=== PATIENT | female | born 1990 | race Caucasian/White ===

== ENCOUNTER 2018-12-20 18:28 | Emergency (ER) | payer OTHER ==
[~2018-12-20] VITALS: Ht 170.2 cm; Wt 86.0 kg
--- NOTE | 2018-12-20 18:36 | NUR ---
PT TO RM AT THIS TIME, RALFD AT BEDSIDE. PT INMATE. PT CURRENLTY AOX2, SEIZURE PRECAUTIONS ARE IN PLACE. ERMD IN TO EVAL PT
--- NOTE | 2018-12-20 19:01 | NUR ---
PT RESTING ON GURNEY WITH EYES OPEN ANSWERING QUESTIONS APPROPRIATELY, MONITORS IN PLACE, OFFICER AT BEDSIDE FOR MONITORING, CALL LIGHT WITHIN REACH. AWAITING LAB RESULTS
[2018-12-20 19:09] LABS: BASOPHILS # (AUTO) 0.03 x10^3/uL (0-0.1); BASOPHILS % (AUTO) 0 % (0-1); EOSINOPHILS # (AUTO) 0.07 x10^3/uL (0-0.4); EOSINOPHILS % (AUTO) 1 % (1-7); LYMPHOCYTES % (AUTO) 30 % (22-44); MD NO; MEAN CORPUSCULAR HEMOGLOBIN 27.2 pg (27.0-34.8); MEAN CORPUSCULAR HGB CONC 32.9 g/dL (32.4-35.8); MEAN CORPUSCULAR VOLUME 82.8 fL (80-100); MEAN PLATELET VOLUME 8.6 fL (7.4-10.4); MONOCYTES # (AUTO) 0.35 x10^3/uL (0.2-0.8); MONOCYTES % (AUTO) 5 % (2-9); NEUTROPHILS # (AUTO) 4.53 x10^3/uL (1.8-6.8); NEUTROPHILS % (AUTO) 64 % (42-75); PLATELET COUNT 298 x10^3/uL (130-400); RED BLOOD COUNT 5.81 x10^6/uL (3.82-5.3); RED CELL DISTRIBUTION WIDTH 15.1 % (9.6-15.2)
[2018-12-20 19:19] LABS: ALANINE AMINOTRANSFERASE 16 U/L (12-78); ALBUMIN 4.3 g/dL (3.4-5.0); ANION GAP 7 mmol/L (5-15); CALCIUM 8.9 mg/dL (8.5-10.1); CHLORIDE 109 mmol/L (98-107)
[2018-12-20 19:23] LABS: ALKALINE PHOSPHATASE 65 U/L (45-117); BILIRUBIN,TOTAL 0.3 mg/dL (0.2-1.0); TOTAL PROTEIN 8.8 g/dL (6.4-8.2)
[2018-12-20] MEDS ORDERED: DIVA250T4 PO (19:28)
[2018-12-20] MEDS ORDERED: GABA-827 PO (19:28)
[2018-12-20] MEDS ORDERED: DIVALPROEX 250 MG TAB.ER.24H PO ONE (20:30)
[2018-12-20] MEDS ORDERED: LEVETIRACETAM 500 MG TABLET PO ONE (20:30)
[2018-12-20 20:31] VITALS: BP 100/67
[2018-12-20] MEDS ORDERED: LEVETIRACETAM 500 MG TABLET ONE (20:36)
--- NOTE | 2018-12-20 20:40 | NUR ---
yellow slip sent to pharmacy for medication
--- NOTE | 2018-12-20 20:44 | NUR ---
PT MEDICATED PER MAR
[2018-12-21] MEDS ORDERED: DIVA125T2 PO (19:14)
[2018-12-21] MEDS ORDERED: subutex (19:18)
== END 2018-12-20 21:06 | disposition home or self-care (01) ==
LOC: ED 20:17
DX: G40.319 Generalized idiopathic epilepsy and epileptic syndromes, intractable, without status epilepticus (principal)
CPT/HCPCS: 36415; 80053; 84703; 85025; 99283

== ENCOUNTER 2018-12-21 17:20 | Inpatient (IN) | payer OTHER ==
[~2018-12-21] VITALS: Ht 160 cm; Wt 72.3 kg
[~2018-12-21 17:20] MED LIST: DIVA250T4 PO; ETOMIDATE 20 MG/10 ML ONE; GABA-827 PO; MIDAZOLAM 1 MG/ML, 5ML ONE; PROPOFOL 100 ML IV ONE; SUCCINYLCHOLINE 20 MG/ML, 10ML ONE
[2018-12-21] MEDS ORDERED: SODIUM CHLORIDE FLUSH 10ML SYR IVF ONE (17:30)
[2018-12-21] MEDS ORDERED: LORazepam 2 MG/ML, 1ML IVPush ONE ×5 (17:30→20:00)
[2018-12-21] MEDS ORDERED: LORazepam 2 MG/ML, 1ML IM ONE (17:30)
[2018-12-21] MEDS ORDERED: LORazepam 2 MG/ML, 1ML ONE ×4 (17:38→20:41)
[2018-12-21] MEDS ORDERED: PLEASE ENTER HEIGHT AND WEIGHT MC SCH (18:00)
--- NOTE | 2018-12-21 18:55 | NUR ---
REPORT FROM JOSE RAMON ASSUMED CARE OF PT AT THIS TIME PT TALKATIVE IN NAD AT THIS TIME
[2018-12-21 18:57] LABS: BASOPHILS # (AUTO) 0.03 x10^3/uL (0-0.1); BASOPHILS % (AUTO) 0 % (0-1); EOSINOPHILS # (AUTO) 0.09 x10^3/uL (0-0.4); EOSINOPHILS % (AUTO) 1 % (1-7); LYMPHOCYTES % (AUTO) 28 % (22-44); MD NO; MEAN CORPUSCULAR HEMOGLOBIN 27.3 pg (27.0-34.8); MEAN CORPUSCULAR HGB CONC 32.9 g/dL (32.4-35.8); MEAN PLATELET VOLUME 8.5 fL (7.4-10.4); MONOCYTES # (AUTO) 0.51 x10^3/uL (0.2-0.8); MONOCYTES % (AUTO) 6 % (2-9); NEUTROPHILS # (AUTO) 5.06 x10^3/uL (1.8-6.8); NEUTROPHILS % (AUTO) 64 % (42-75); PLATELET COUNT 273 x10^3/uL (130-400); RED BLOOD COUNT 4.82 x10^6/uL (3.82-5.3); RED CELL DISTRIBUTION WIDTH 15.3 % (9.6-15.2)
--- NOTE | 2018-12-21 19:01 | NUR ---
PT HAD SEIZURE AT THIS TIME
[2018-12-21 19:08] LABS: ALBUMIN 3.5 g/dL (3.4-5.0); ANION GAP 11 mmol/L (5-15); CALCIUM 8.2 mg/dL (8.5-10.1); CHLORIDE 112 mmol/L (98-107)
--- NOTE | 2018-12-21 19:10 | NUR ---
NOTIFIED OF PT HAVING 2 SEIZURES MEDICATED PER ORDER
[2018-12-21 19:11] LABS: ALANINE AMINOTRANSFERASE 14 U/L (12-78); CREATININE 1.05 mg/dL (0.55-1.02)
[2018-12-21 19:14] LABS: ALKALINE PHOSPHATASE 55 U/L (45-117); BILIRUBIN,TOTAL 0.2 mg/dL (0.2-1.0); TOTAL PROTEIN 7.1 g/dL (6.4-8.2)
[2018-12-21] MEDS ORDERED: DIVA125T2 PO (19:14)
[2018-12-21 19:15] LABS: SALICYLATE LEVEL < 1.7 mg/dL (2.8-20.0)
[2018-12-21] MEDS ORDERED: subutex (19:18)
[2018-12-21] MEDS ORDERED: DEXTROSE 5% IV ONE (19:30)
[2018-12-21] MEDS ORDERED: VALPROATE SODIUM IV ONE (19:30)
[2018-12-21] MEDS ORDERED: VALPROATE SODIUM 100 MG/ML, 5ML IV ONE (19:30)
--- NOTE | 2018-12-21 19:53 | NUR ---
awaiting admit bed at this time
[2018-12-21] MEDS ORDERED: SODIUM CHLORIDE FLUSH 10ML SYR IVF PRN (20:00)
[2018-12-21] MEDS ORDERED: LEVETIRACETAM 1,000 MG in SODIUM CHLORIDE 0.9% 100 ML IV SCH (20:00)
[2018-12-21] MEDS ORDERED: LEVETIRACETAM 1,250 MG in SODIUM CHLORIDE 0.9% 100 ML IV SCH (20:11)
[2018-12-21] MEDS ORDERED: ONDANSETRON 2MG/ML, 2ML IVPush PRN (20:30)
[2018-12-21] MEDS: LEVETIRACETAM 1,250 MG in SODIUM CHLORIDE 0.9% 100 ML IV SCH (20:30)
[2018-12-21] MEDS ORDERED: ACETAMINOPHEN 325 MG TABLET PO PRN (20:30)
[2018-12-21 20:43] LABS: AMPHETAMINE SCREEN, URINE Negative (Negative); BARBITURATE SCREEN, URINE Negative (Negative); BENZODIAZEPINE SCREEN, URINE Positive (Negative); CANNABINOID SCREEN, URINE Negative (Negative); COCAINE SCREEN, URINE Negative (Negative); METHADONE SCREEN, URINE Negative (Negative); OPIATE SCREEN, URINE Negative (Negative)
[2018-12-21] MEDS ORDERED: DIPHENHYDRAMINE 50 MG/ML, 1ML ONE (20:57)
[2018-12-21] MEDS ORDERED: methylPREDNISolone SOD SUCC 125 MG/2 ML ONE (20:58)
[2018-12-21] MEDS ORDERED: SUCCINYLCHOLINE 20 MG/ML, 10ML IVPush ONE (21:00)
[2018-12-21] MEDS ORDERED: ETOMIDATE 40 MG/20 ML IVPush ONE (21:00)
[2018-12-21] MEDS ORDERED: DIPHENHYDRAMINE 50 MG/ML, 1ML IVPush ONE (21:00)
[2018-12-21] MEDS ORDERED: methylPREDNISolone SOD SUCC 125 MG/2 ML IVPush ONE (21:00)
--- NOTE | 2018-12-21 21:10 | NUR ---
THROUGHPUT RN: RT PAGED FOR PT EMERGENT INTUBATION.
--- NOTE | 2018-12-21 21:18 | NUR ---
PT WAS EMERGENTLY INTUBATED TO PROTECT AIRWAY D/T CONSTANT SEIZURES ,ADMITING AND DR ERIC AT BEDSIDE MEDICATED PER MAR
[2018-12-21] MEDS: PROPOFOL 100 ML IV PRN ×2 (21:22→23:20)
[2018-12-21 21:32] VITALS: BP 139/75
--- NOTE | 2018-12-21 21:33 | NUR ---
LAWS PLACED, OG PLACED PT ON VENT WITH SIZE 8 ET RATE OF 14 PEEP 5 WITH 100 % FIO2
--- NOTE | 2018-12-21 21:39 | NUR ---
THROUGHPUT RN: MD RASCON PULMONOLOGY TO BEDSIDE. CCU TO CALL FOR REPORT.
--- NOTE | 2018-12-21 21:55 | NUR ---
Becky cano in [facility] - 12/21/18 at 2221 by JOAQUIN AWAITING MENTAL HEALTH ASSESMENT TEAM TO CALL BACK.
[2018-12-21] MEDS ORDERED: LIDOCAINE-MPF 1%, 2ML ENDO PRN (22:00)
[2018-12-21] MEDS ORDERED: PHARMACY MAY ADJ FOR RENAL FX MC SCH (22:00)
--- NOTE | 2018-12-21 22:20 | NUR ---
PT TO ICU WITH THIS RN AND RT AND TECH AND OFFICER
[2018-12-21] MEDS ORDERED: MIDAZOLAM 1 MG/ML, 2ML IVPush PRN (22:30)
[2018-12-21] MEDS: SODIUM CHLORIDE 0.9% 1,000 ML IV SCH (22:46)
[2018-12-21] MEDS: HEPARIN 5,000 UNITS/ML, 1ML SQ SCH (22:46)
[2018-12-21] MEDS: FAMOTIDINE 20 MG/2 ML IV SCH (22:46)
[2018-12-22] MEDS: PROPOFOL 100 ML IV PRN ×2 (04:18→09:14)
[2018-12-22 04:52] LABS: BASOPHILS # (AUTO) 0.02 x10^3/uL (0-0.1); BASOPHILS % (AUTO) 0 % (0-1); EOSINOPHILS % (AUTO) 0 % (1-7); LYMPHOCYTES # (AUTO) 1.07 x10^3/uL (1-3.4); LYMPHOCYTES % (AUTO) 15 % (22-44); MD NO; MEAN CORPUSCULAR HEMOGLOBIN 26.8 pg (27.0-34.8); MEAN CORPUSCULAR HGB CONC 32.7 g/dL (32.4-35.8); MEAN CORPUSCULAR VOLUME 82.2 fL (80-100); MEAN PLATELET VOLUME 8.3 fL (7.4-10.4); MONOCYTES # (AUTO) 0.02 x10^3/uL (0.2-0.8); MONOCYTES % (AUTO) 0 % (2-9); NEUTROPHILS # (AUTO) 6.15 x10^3/uL (1.8-6.8); NEUTROPHILS % (AUTO) 85 % (42-75); PLATELET COUNT 248 x10^3/uL (130-400); RED BLOOD COUNT 4.85 x10^6/uL (3.82-5.3); RED CELL DISTRIBUTION WIDTH 15.4 % (9.6-15.2)
[2018-12-22 05:05] LABS: ANION GAP 11 mmol/L (5-15); CALCIUM 8.5 mg/dL (8.5-10.1); CHLORIDE 112 mmol/L (98-107); CREATININE 1.02 mg/dL (0.55-1.02)
[2018-12-22] MEDS: SODIUM CHLORIDE 0.9% 1,000 ML IV SCH (06:04)
[2018-12-22] MEDS: HEPARIN 5,000 UNITS/ML, 1ML SQ SCH ×3 (06:04→20:32)
[2018-12-22] MEDS: LEVETIRACETAM 1,250 MG in SODIUM CHLORIDE 0.9% 100 ML IV SCH ×2 (08:47→20:32)
[2018-12-22] MEDS ORDERED: VALPROATE SODIUM 500 MG in DEXTROSE 5% 100 ML IV SCH (09:00)
[2018-12-22] MEDS: VALPROATE SODIUM 750 MG in DEXTROSE 5% 100 ML IV SCH ×2 (09:43→21:14)
[2018-12-22] MEDS: FAMOTIDINE 20 MG/2 ML IV SCH ×2 (10:50→20:32)
[2018-12-22] MEDS ORDERED: LORazepam 2 MG/ML, 1ML ONE (12:30)
[2018-12-22] MEDS ORDERED: LORazepam 2 MG/ML, 1ML IVPush ONE (13:00)
[2018-12-22] MEDS ORDERED: LORazepam 2 MG/ML, 1ML IVPush PRN ×2 (13:00→19:30)
[2018-12-22 13:54] LABS: BASOPHILS # (AUTO) 0.01 x10^3/uL (0-0.1); BASOPHILS % (AUTO) 0 % (0-1); EOSINOPHILS % (AUTO) 0 % (1-7); LYMPHOCYTES # (AUTO) 2.07 x10^3/uL (1-3.4); LYMPHOCYTES % (AUTO) 19 % (22-44); MD NO; MEAN CORPUSCULAR HEMOGLOBIN 26.9 pg (27.0-34.8); MEAN CORPUSCULAR HGB CONC 32.9 g/dL (32.4-35.8); MEAN CORPUSCULAR VOLUME 81.6 fL (80-100); MEAN PLATELET VOLUME 8.1 fL (7.4-10.4); MONOCYTES # (AUTO) 0.39 x10^3/uL (0.2-0.8); MONOCYTES % (AUTO) 4 % (2-9); NEUTROPHILS # (AUTO) 8.32 x10^3/uL (1.8-6.8); NEUTROPHILS % (AUTO) 77 % (42-75); PLATELET COUNT 267 x10^3/uL (130-400); RED BLOOD COUNT 4.73 x10^6/uL (3.82-5.3); RED CELL DISTRIBUTION WIDTH 15.6 % (9.6-15.2)
[2018-12-22 14:07] LABS: ALANINE AMINOTRANSFERASE 12 U/L (12-78); ALBUMIN 3.5 g/dL (3.4-5.0); ANION GAP 9 mmol/L (5-15); CALCIUM 8.6 mg/dL (8.5-10.1); CHLORIDE 112 mmol/L (98-107); CREATININE 0.84 mg/dL (0.55-1.02)
[2018-12-22 14:09] LABS: ALKALINE PHOSPHATASE 50 U/L (45-117); BILIRUBIN,TOTAL 0.3 mg/dL (0.2-1.0); TOTAL PROTEIN 7.3 g/dL (6.4-8.2)
[2018-12-22] MEDS ORDERED: OMNIPAQUE 350 MG/ML, 100ML BOTTLE ONE (14:09)
[2018-12-23] MEDS: SODIUM CHLORIDE 0.9% 1,000 ML IV SCH (00:44)
[2018-12-23] MEDS: HEPARIN 5,000 UNITS/ML, 1ML SQ SCH (00:44)
[2018-12-23 04:13] LABS: BASOPHILS # (AUTO) 0.03 x10^3/uL (0-0.1); BASOPHILS % (AUTO) 1 % (0-1); EOSINOPHILS # (AUTO) 0.04 x10^3/uL (0-0.4); EOSINOPHILS % (AUTO) 1 % (1-7); LYMPHOCYTES # (AUTO) 2.67 x10^3/uL (1-3.4); LYMPHOCYTES % (AUTO) 38 % (22-44); MD NO; MEAN CORPUSCULAR HEMOGLOBIN 27.5 pg (27.0-34.8); MEAN CORPUSCULAR HGB CONC 33.1 g/dL (32.4-35.8); MEAN CORPUSCULAR VOLUME 83.2 fL (80-100); MEAN PLATELET VOLUME 8.6 fL (7.4-10.4); MONOCYTES # (AUTO) 0.28 x10^3/uL (0.2-0.8); MONOCYTES % (AUTO) 4 % (2-9); NEUTROPHILS # (AUTO) 3.98 x10^3/uL (1.8-6.8); NEUTROPHILS % (AUTO) 57 % (42-75); PLATELET COUNT 202 x10^3/uL (130-400); RED BLOOD COUNT 4.05 x10^6/uL (3.82-5.3); RED CELL DISTRIBUTION WIDTH 15.8 % (9.6-15.2)
[2018-12-23 04:25] LABS: ANION GAP 6 mmol/L (5-15); CALCIUM 8.1 mg/dL (8.5-10.1); CHLORIDE 112 mmol/L (98-107); CREATININE 0.67 mg/dL (0.55-1.02)
[2018-12-23] MEDS ORDERED: LEVETIRACETAM 500 MG TABLET PO SCH (09:30)
[2018-12-23] MEDS ORDERED: VALPROIC ACID 250 MG CAPSULE PO SCH (09:30)
[2018-12-23] MEDS ORDERED: VALP250C59 PO (10:41)
[2018-12-23] MEDS ORDERED: LEVE500T53 PO (10:41)
== END 2018-12-23 09:46 | disposition left against medical advice (07) | DRG 208 ==
LOC: ED 17:45 → EDIP 19:45 → CCU 22:05 → ICU 12-23 08:53
PROVIDERS: ADMIT Internal Medicine; ATTEND Internal Medicine
PROC: 5A1935Z Respiratory Ventilation, Less than 24 Consecutive Hours (ICD-10-PCS; principal; 2018-12-21)
PROC: 0BH17EZ Insertion of Endotracheal Airway into Trachea, Via Natural or Artificial Opening (ICD-10-PCS; 2018-12-21)
DX: J96.01 Acute respiratory failure with hypoxia (principal); E87.2 Acidosis; Z99.11 Dependence on respirator [ventilator] status; F11.10 Opioid abuse, uncomplicated; G40.401 Other generalized epilepsy and epileptic syndromes, not intractable, with status epilepticus; Z79.899 Other long term (current) drug therapy; Z91.19 Patient's noncompliance with other medical treatment and regimen; Z53.21 Procedure and treatment not carried out due to patient leaving prior to being seen by health care provider
CPT/HCPCS: 36600; J3490; 31500; 70450; 70496; 70498; 71045; 80048; 80053; 80164; 80307; 82550; 82803; 82962; 83735; 84478; 84703; 85025; 87070; 87081; 87205; 93005; 94002; 94003; 94150; 95951; 96374; 96375; G0378; J1644; J1953; J2250; J2704; Q9967; J0330; J1200; J2060; J2930; J7030